=== PATIENT | female | born 1980 | race Two or more races ===

== ENCOUNTER 2024-09-03 08:35 | Emergency (ER) | payer MEDICAID ==
[~2024-09-03] VITALS: Ht 162.6 cm; Wt 70.0 kg
[2024-09-03 08:43] VITALS: O2SAT 99
[2024-09-03 08:50] VITALS: BP 112/86; PULSE 86; RESP 18; TEMP 37.1; O2SAT 99
[2024-09-03 09:18] LABS: BASOPHILS % 0.4 % (0.0-2.0); HEMATOCRIT. 41.8 % (36.0-48.0); HEMOGLOBIN. 13.8 g/dL (12.0-16.0); LYMPHOCYTES % 24.8 % (20.0-50.0); MEAN CORPUSCULAR HEMOGLOBIN 29.2 pg (28.0-32.0); MEAN CORPUSCULAR HGB CONC 33.1 g/dL (31.0-37.0); MEAN CORPUSCULAR VOLUME 88.2 fL (81.0-99.0); MEAN PLATELET VOLUME 7.9 fl (7.4-10.4); MONOCYTES % 4.6 % (2.0-8.0); NEUTROPHILS % 68.2 % (40.0-76.0); PLATELET 252 x1000/uL (130-400); RED BLOOD CELL COUNT 4.74 mill/uL (4.2-5.4); RED CELL DISTRIBUTION WIDTH 14.1 % (11.6-14.6); WHITE BLOOD COUNT 5.7 x1000/uL (4.5-11.0)
[2024-09-03 09:25] LABS: CHLORIDE 108 mEq/L (98-107); SODIUM 139 mEq/L (136-145)
[2024-09-03 09:26] LABS: CARBON DIOXIDE 25 mEq/L (21-32)
[2024-09-03 09:27] LABS: CALCIUM 9.2 mg/dL (8.7-10.4)
[2024-09-03 09:31] LABS: CREATININE 0.7 mg/dL (0.6-1.0); GLUCOSE 108 mg/dL (70-105)
[2024-09-03 09:32] LABS: UREA NITROGEN BLOOD 9 mg/dL (9-23)
[2024-09-03 09:33] LABS: ALANINE AMINOTRANSFERASE 36 IU/L (10-49); ALBUMIN 4.2 g/dL (3.2-4.8); ASPARTATE AMINOTRANSFERASE 24 IU/L (<34)
[2024-09-03 09:34] LABS: BILIRUBIN DIRECT 0.3 mg/dL (<=3.0); BILIRUBIN TOTAL 1.6 mg/dL (0.1-1.0); PROTEIN TOTAL 7.3 g/dL (6.0-8.3)
[2024-09-03 09:57] LABS: HCG SCREEN NEGATIVE
[2024-09-03 10:03] LABS: CLARITY URINE CLEAR (CLEAR); COLOR URINE OTHER (YELLOW)
[2024-09-03 10:04] LABS: GLUCOSE URINE NEGATIVE (NEGATIVE); KETONES URINE NEGATIVE (NEGATIVE); LEUKOCYTE ESTERASE URINE 2+ (NEGATIVE); NITRITE URINE NEGATIVE (NEGATIVE); OCCULT BLOOD URINE NEGATIVE (NEGATIVE); PROTEIN URINE NEGATIVE (NEGATIVE); UROBILINOGEN URINE 0.2 E.U./dL (0.2-1.0)
[2024-09-03 10:32] LABS: BACTERIA URINE 2+; SQUAMOUS EPITHELIAL CELL URINE 3+ /lpf (RARE/1+); YEAST URINE NONE SEEN
[2024-09-03] MEDS ORDERED: NITR-87 MT (10:36)
== END 2024-09-03 10:43 | disposition home or self-care (01) ==
LOC: ER 08:35
DX: N39.0 Urinary tract infection, site not specified (principal); Z79.899 Other long term (current) drug therapy
CPT/HCPCS: 36415; 80048; 80076; 81003; 81025; 84703; 85025; 86850; 86900; 99283